=== PATIENT | female | born 1985 ===

== ENCOUNTER 2021-12-11 09:30 | Inpatient (IN) | payer OTHER ==
[~2021-12-11] VITALS: Ht 160 cm; Wt 72.6 kg
[~2021-12-11 09:30] MED LIST: PRENATAL TABLE1 EAC1 PO
== END 2021-12-13 12:01 | disposition home or self-care (01) | DRG 807 ==
LOC: OB/GYN 09:30 → LDR 09:30 → OB/GYN 21:00
PROVIDERS: ADMIT Obstetrics & Gynecology; ATTEND Obstetrics & Gynecology
PROC: 10E0XZZ Delivery of Products of Conception, External Approach (ICD-10-PCS; principal; 2021-12-11)
PROC: 0HQ9XZZ Repair Perineum Skin, External Approach (ICD-10-PCS; 2021-12-11)
PROC: 4A1HXCZ Monitoring of Products of Conception, Cardiac Rate, External Approach (ICD-10-PCS; 2021-12-11)
DX: O70.1 Second degree perineal laceration during delivery (principal); Z37.0 Single live birth; Z3A.39 39 weeks gestation of pregnancy; Z20.822 Contact with and (suspected) exposure to COVID-19